=== PATIENT | male | born 1975 | race Two or more races ===

== ENCOUNTER 2017-10-10 11:56 | Inpatient (IN) | payer OTHER ==
[2017-10-10 12:22] VITALS: BMI 23.3
--- NOTE | 2017-10-10 16:23 | HP ---
COWS - Scale Resting Pulse: 1= IN 81-100 Sweatin=Flushed/Facial Moisture Restless Observation: 1= Difficult to Sit Still Pupil Size: 1= Pupils >than Normal Bone or Joint Aches: 2= Severe Diffuse Aches Runny Nose/ Eye Tearin= Runny Nose/Eyes GI Upset > 30mins: 1= Stomach Cramp Tremor Observation: 1= Tremor [place], Not Seen Yawning Observation: 1= 1-2x During Session Anxiety or Irritability: 2=Irritable/Anxious Goose Flesh Skin: 0=Smooth Skin COWS Score: 14 Admission ROS S - [facility] Chief Complaint: WITHDRAWAL SYMPTOMS Allergies/Adverse Reactions: Allergies Allergy/AdvReac Type Severity Reaction Status Date / Time No Known Allergies Allergy Verified 10/10/17 13:03 History of Present Illness: 41 Y.O. MAN WITH HISTORY OF OPIOID, COCAINE AND MARIJUANA DEPENDENCE IS HERE SEEKING DETOX. HE PREVIOUSLY COMPLETED DETOX AT ANOTHER FACILITY IN 2014. HE REPORTS HIS LONGEST PERIOD CLEAN HAS BEEN 1 YEAR AND STATES HE RELAPSED IN MAR, 2017. Exam Limitations: No Limitations - Ebola screening Have you traveled outside of the country in the last 21 days: No (N) Have you had contact with anyone from an Ebola affected area: No Have you been sick,other than usual withdrawal symptoms: No Do you have a fever: No - Review of Systems Constitutional: Chills, Loss of Appetite, Night Sweats, Unintentional Wgt. Loss EENT: reports: Tearing, Nose Congestion Respiratory: reports: Cough, Shortness of Breath Cardiac: reports: Chest Pain, Palpitations GI: reports: Nausea, Poor Appetite : reports: No Symptoms Reported Musculoskeletal: reports: Back Pain Integumentary: reports: No Symptoms Reported Neuro: reports: Headache Endocrine: reports: No Symptoms Reported Hematology: reports: No Symptoms Reported Psychiatric: reports: Mood/Affect Appropiate, Orientated x3, Depressed Other Systems: Reviewed and Negative Patient History - Patient Medical History Hx Anemia: No Hx Asthma: No Hx Chronic Obstructive Pulmonary Disease (COPD): Yes (Emphysema-dx 2011) Hx Cancer: No Hx Cardiac Disorders: No Hx Congestive Heart Failure: No Hx Hypertension: No Hx Hypercholesterolemia: No Hx Pacemaker: No HX Cerebrovascular Accident: No Hx Seizures: No Hx Dementia: No Hx Diabetes: No Hx Gastrointestinal Disorders: No Hx Liver Disease: Yes (HCV (untreated)) Hx Genitourinary Disorders: No Hx Sexually Transmitted Disorders: No Hx Renal Disease (ESRD): No Hx Thyroid Disease: No Hx Human Immunodeficiency Virus (HIV): No Hx Hepatitis C: Yes (Untreated ) Hx Depression: Yes Hx Suicide Attempt: No Hx Bipolar Disorder: No Hx Schizophrenia: No - Patient Surgical History Past Surgical History: Yes Other Surgical History: Left hand sx Anesthesia Reaction: No - PPD History Previous Implant?: Yes Documented Results: Negative w/o proof Implanted On Prior R Admission?: No PPD to be Administered?: Yes - Reproductive History Patient is a Female of Child Bearing Age (11 -55 yrs old): No - Smoking Cessation Smoking history: Current every day smoker Aproximately how many cigarettes per day: 40 Hx Chewing Tobacco Use: No Initiated information on smoking cessation: Yes 'Breaking Loose' booklet given: 10/10/17 - Substance & Tx. History Hx Alcohol Use: No Hx Substance Use: Yes Substance Use Type: Cocaine, Heroin, Marijuana Hx Substance Use Treatment: Yes (Detox: 2015 @ [facility] ) - Substances Abused Heroin Route: Injection Frequency: Daily Amount used: 7-8 bags Age of first use: 16 Date of Last Use: 10/09/17 Cocaine Route: Injection Frequency: Daily Amount used: $40 Age of first use: 9 Date of Last Use: 10/09/17 Marijuana/Hashish Route: Smoking Frequency: Daily Amount used: $40 Age of first use: 7 Date of Last Use: 10/09/17 Family Disease History - Family Disease History Family Disease History: Diabetes: Mother ( ), Heart Disease: Mother Admission Physical Exam [facility] - Vital Signs Vital Signs: Vital Signs - 24 hr 10/10/17 12:19 Temperature 97.9 F Pulse Rate 83 Respiratory 18 Rate Blood Pressure 150/87 - Physical General Appearance: Yes: Sweating, Anxious HEENTM: Yes: Hearing grossly Normal, Normocephalic, Normal Voice Respiratory: Yes: Chest Non-Tender, Lungs Clear, Normal Breath Sounds, No Accessory Muscle Use Neck: Yes: No masses,lesions,Nodules, Trachea in good position Breast: Yes: Breast Exam Deferred Cardiology: Yes: Regular Rhythm, Regular Rate Abdominal: Yes: Normal Bowel Sounds, Non Tender, Flat Genitourinary: Yes: Other (No complaints reported) Musculoskeletal: Yes: Back pain Extremities: Yes: Normal Capillary Refill, Normal Inspection, Normal Range of Motion, Non-Tender 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: 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: 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 - Detox or Rehab [facility] Level of Care: Medically Managed Detox Regimen/Protocol: Methadone [facility] Breath Alcohol Content Breath Alcohol Content: 0 Urine Drug Screen - Results Drug Screen Negative: No Urine Drug Screen Results: THC-Marijuana, DHAVAL-Cocaine, OPI-Opiates
[2017-10-10] MEDS ORDERED: guaiFENesin/D-METHORPHAN HB 10 ML UNIT-DOSE CUPS PO PRN (16:33)
[2017-10-10] MEDS ORDERED: MAGNESIUM HYDROX 2400MG/30ML ORAL SUSPENSION 30 ML CUP PO PRN (16:33)
[2017-10-10] MEDS ORDERED: IBUPROFEN 400 MG TABLET (FP) PO PRN (16:33)
[2017-10-10] MEDS ORDERED: ACETAMINOPHEN 325 MG TABLET (FP) PO PRN (16:33)
[2017-10-10] MEDS ORDERED: P-EPHED 60MG/TRIPROLIDI 2.5MG TABLET PO PRN (16:33)
[2017-10-10] MEDS ORDERED: hydrOXYzine PAMOATE 50 MG CAPSULE (FP) PO PRN (16:33)
[2017-10-10] MEDS ORDERED: LOPERAMIDE HCL 2 MG CAPSULE PO PRN (16:33)
[2017-10-10] MEDS ORDERED: MAG HYDROX/AL HYDROX/SIMETH 30 ML UNIT-DOSE CUP PO PRN (16:33)
[2017-10-10] MEDS ORDERED: MAGNESIUM CITRATE 300 ML BOTTLE PO PRN (16:33)
[2017-10-10] MEDS ORDERED: MENTHOL/PHENOL 1 EACH UD MM PRN (16:33)
[2017-10-10] MEDS ORDERED: NICOTINE POLACRILEX 4 MG GUM BC PRN (16:33)
[2017-10-10] MEDS ORDERED: ALBUTEROL SO4 2.5/IPRATROPIUM 0.5 INH SOL 3 ML VIAL.NEB. NEB PRN (16:35)
[2017-10-10] MEDS ORDERED: METHADONE HCL 10 MG TABLET (FOR DETOX USE ONLY) PO ONE ×2 (17:00→23:00)
[2017-10-10] MEDS: diazePAM 5 MG TABLET PO PRN ×2 (17:20→22:25)
[2017-10-10 20:57] LABS: URINE APPEARANCE SLCLOUDY; URINE BILIRUBIN NEGATIVE (NEGATIVE); URINE BLOOD NEGATIVE (NEGATIVE); URINE COLOR YELLOW; URINE GLUCOSE (UA) NEGATIVE (NEGATIVE); URINE KETONE NEGATIVE (NEGATIVE); URINE NITRITE NEGATIVE (NEGATIVE); URINE PROTEIN NEGATIVE (NEGATIVE); URINE UROBILINOGEN NEGATIVE mg/dL (0.2-1.0)
[2017-10-10] MEDS ORDERED: ZOLPIDEM TARTRATE 10 MG TABLET (PARK CARE ONLY) PO ONE (22:00)
[2017-10-10] MEDS: THIAMINE HCL 100 MG TABLET (FP) PO SCH (22:25)
[2017-10-11 00:40] LABS: HIV 1 & 2 AB NEGATIVE; HIV 1 AGp24 NEGATIVE
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
[2017-10-11] MEDS ORDERED: METHADONE HCL 10 MG TABLET (FOR DETOX USE ONLY) PO ONE (10:00)
[2017-10-11] MEDS: NICOTINE 21 MG/24 HOURS TOPICAL PATCH TD SCH (10:21)
[2017-10-11] MEDS: PRENATAL VITAMINS W/ FOLIC ACID TABLET (FP) PO SCH (10:22)
[2017-10-11] MEDS: diazePAM 5 MG TABLET PO PRN ×2 (10:24→22:15)
[2017-10-11 10:46] LABS: RDW 13.8 % (11.9-15.9); WHITE BLOOD COUNT 6.6 K/mm3 (4.0-10.0)
[2017-10-11 10:48] LABS: MCH 31.3 pg (25.7-33.7); MCHC 32.9 g/dl (32.0-35.9); MEAN CELL VOLUME 95.1 fl (80-96); PLATELET COUNT 220 K/MM3 (134-434)
[2017-10-11 10:49] LABS: ALBUMIN 3.8 g/dl (3.4-5.0); ANION GAP 9 (8-16); BILIRUBIN,TOTAL 0.4 mg/dL (0.2-1.0); CALCIUM 9.4 mg/dL (8.5-10.1); CO2 29 mmol/L (21-32); GLUCOSE,RANDOM 77 mg/dL (74-106); SGOT/AST 38 U/L (15-37); SGPT/ALT 66 U/L (12-78); TOT PROT 7.5 g/dl (6.4-8.2)
[2017-10-11 10:51] LABS: ALK PHOS 103 U/L (45-117)
--- NOTE | 2017-10-11 15:07 | PN ---
BHS COWS - Scale Resting Pulse: 0= ID 80 or Below Sweatin= Chills/Flushing Restless Observation: 1= Difficult to Sit Still Pupil Size: 0= Normal to Room Light Bone or Joint Aches: 2= Severe Diffuse Aches Runny Nose/ Eye Tearin= Runny Nose/Eyes GI Upset > 30mins: 0= None Tremor Observation of Outstretched Hands: 2= Slight Tremor Visible Yawning Observation: 2= >3x During Session Anxiety or Irritability: 2=Irritable/Anxious Goose Flesh Skin: 0=Smooth Skin COWS Score: 12 BHS Progress Note (SOAP) Subjective: Sweating, Fatigue, Body Aches, Tremors. Objective: PT. A & O X 2 (UNCERTAIN ABOUT DAY / DATE). PT. OBSERVED AMBULATING ON UNIT. NO ACUTE DISTRESS. 10/11/17 15:05 Vital Signs Temperature 98.3 F 10/11/17 14:38 Pulse Rate 74 10/11/17 14:38 Respiratory Rate 18 10/11/17 14:38 Blood Pressure 129/85 10/11/17 14:38 O2 Sat by Pulse Oximetry (%) Laboratory Tests 10/10/17 10/10/17 10/11/17 14:00 19:00 06:00 WBC 6.6 RBC 4.58 Hgb 14.3 Hct 43.5 MCV 95.1 MCH 31.3 MCHC 32.9 RDW 13.8 Plt Count 220 MPV 10.0 Sodium Potassium Chloride Carbon Dioxide Anion Gap BUN Creatinine Creat Clearance w eGFR Random Glucose Calcium Total Bilirubin AST ALT Alkaline Phosphatase Total Protein Albumin Urine Color Yellow Urine Appearance Slcloudy Urine pH 6.0 Ur Specific [place] 1.023 Urine Protein Negative Urine Glucose (UA) Negative Urine Ketones Negative Urine Blood Negative Urine Nitrite Negative Urine Bilirubin Negative Urine Urobilinogen Negative RPR Titer HIV 1&2 Antibody Screen Negative HIV P24 Antigen Negative 10/11/17 10/11/17 06:00 06:00 WBC RBC Hgb Hct MCV MCH MCHC RDW Plt Count MPV Sodium 139 Potassium 4.5 Chloride 101 Carbon Dioxide 29 Anion Gap 9 BUN 15 Creatinine 1.0 Creat Clearance w eGFR > 60 Random Glucose 77 Calcium 9.4 Total Bilirubin 0.4 AST 38 H ALT 66 Alkaline Phosphatase 103 Total Protein 7.5 Albumin 3.8 Urine Color Urine Appearance Urine pH Ur Specific [place] Urine Protein Urine Glucose (UA) Urine Ketones Urine Blood Urine Nitrite Urine Bilirubin Urine Urobilinogen RPR Titer Nonreactive HIV 1&2 Antibody Screen HIV P24 Antigen LABS NOTED. HCV AB RESULT PENDING. 10/11/17 15:07 Assessment: 10/11/17 15:06 WITHDRAWAL SYMPTOMS. Plan: CONTINUE DETOX. INCREASE DAILY PO FLUID INTAKE.
[2017-10-11 16:39] LABS: URINE LEUK ESTERASE Negative (NEGATIVE)
[2017-10-11] MEDS: THIAMINE HCL 100 MG TABLET (FP) PO SCH (22:13)
[2017-10-11] MEDS: ZOLPIDEM TARTRATE 10 MG TABLET (PARK CARE ONLY) PO PRN (22:15)
[2017-10-12] MEDS ORDERED: METHADONE HCL 5 MG TABLET (FOR DETOX USE ONLY) PO ONE (10:00)
[2017-10-12] MEDS: NICOTINE 21 MG/24 HOURS TOPICAL PATCH TD SCH (10:26)
[2017-10-12] MEDS: PRENATAL VITAMINS W/ FOLIC ACID TABLET (FP) PO SCH (10:26)
[2017-10-12] MEDS: diazePAM 5 MG TABLET PO PRN ×2 (10:29→19:46)
--- NOTE | 2017-10-12 16:21 | PN ---
BHS COWS - Scale Resting Pulse: 1= [place] 81-100 Sweatin=Flushed/Facial Moisture Restless Observation: 3= Extraneous Movement Pupil Size: 0= Normal to Room Light Bone or Joint Aches: 2= Severe Diffuse Aches Runny Nose/ Eye Tearin= Runny Nose/Eyes GI Upset > 30mins: 2= Nausea/Diarrhea Tremor Observation of Outstretched Hands: 2= Slight Tremor Visible Yawning Observation: 0= None Anxiety or Irritability: 2=Irritable/Anxious Goose Flesh Skin: 0=Smooth Skin COWS Score: 16 BHS Progress Note (SOAP) Subjective: Tremor, sweating, chills, interrupted sleep Objective: 10/12/17 16:20 Last Vital Signs Temp Pulse Resp BP Pulse Ox 97.3 F L 82 18 132/88 10/12/17 14:48 10/12/17 14:48 10/12/17 14:48 10/12/17 14:48 Laboratory Tests 10/10/17 10/10/17 10/11/17 14:00 19:00 06:00 WBC RBC Hgb Hct MCV MCH MCHC RDW Plt Count MPV Sodium Potassium Chloride Carbon Dioxide Anion Gap BUN Creatinine Creat Clearance w eGFR Random Glucose Calcium Total Bilirubin AST ALT Alkaline Phosphatase Total Protein Albumin Urine Color Yellow Urine Appearance Slcloudy Urine pH 6.0 Ur Specific [place] 1.023 Urine Protein Negative Urine Glucose (UA) Negative Urine Ketones Negative Urine Blood Negative Urine Nitrite Negative Urine Bilirubin Negative Urine Urobilinogen Negative Ur Leukocyte Esterase Negative RPR Titer Hepatitis C Antibody >11.0 H HIV 1&2 Antibody Screen Negative HIV P24 Antigen Negative 10/11/17 10/11/17 10/11/17 06:00 06:00 06:00 WBC 6.6 RBC 4.58 Hgb 14.3 Hct 43.5 MCV 95.1 MCH 31.3 MCHC 32.9 RDW 13.8 Plt Count 220 MPV 10.0 Sodium 139 Potassium 4.5 Chloride 101 Carbon Dioxide 29 Anion Gap 9 BUN 15 Creatinine 1.0 Creat Clearance w eGFR > 60 Random Glucose 77 Calcium 9.4 Total Bilirubin 0.4 AST 38 H ALT 66 Alkaline Phosphatase 103 Total Protein 7.5 Albumin 3.8 Urine Color Urine Appearance Urine pH Ur Specific [place] Urine Protein Urine Glucose (UA) Urine Ketones Urine Blood Urine Nitrite Urine Bilirubin Urine Urobilinogen Ur Leukocyte Esterase RPR Titer Nonreactive Hepatitis C Antibody HIV 1&2 Antibody Screen HIV P24 Antigen Labs noted Assessment: 10/12/17 16:21 Withdrawal symptoms Plan: Continue detox Encouraged to drink lots of water
[2017-10-12] MEDS: THIAMINE HCL 100 MG TABLET (FP) PO SCH (22:10)
[2017-10-12] MEDS: ZOLPIDEM TARTRATE 10 MG TABLET (PARK CARE ONLY) PO PRN (22:10)
--- NOTE | 2017-10-13 09:42 | EKG ---
Test Reason : Blood Pressure : / mmHG Vent. Rate : 080 BPM Atrial Rate : 080 BPM P-R Int : 166 ms QRS Dur : 084 ms QT Int : 350 ms P-R-T Axes : 054 065 040 degrees QTc Int : 403 ms NORMAL SINUS RHYTHM NORMAL ECG NO PREVIOUS ECGS AVAILABLE Confirmed by JACINDA MCLEAN, KATHY ([id number]) on 10/13/2017 9:41:55 AM Referred By: Confirmed By:KATHY MONACO MD
[2017-10-13] MEDS ORDERED: METHADONE HCL 5 MG TABLET (FOR DETOX USE ONLY) PO ONE (10:00)
[2017-10-13] MEDS: PRENATAL VITAMINS W/ FOLIC ACID TABLET (FP) PO SCH (10:07)
[2017-10-13] MEDS: diazePAM 5 MG TABLET PO PRN ×2 (10:07→16:26)
[2017-10-13] MEDS: NICOTINE 21 MG/24 HOURS TOPICAL PATCH TD SCH (10:07)
--- NOTE | 2017-10-13 10:22 | PN ---
BHS Progress Note (SOAP) Subjective: ANXIETY,TREMORS,SWEATS/CHILLS. Objective: 10/13/17 10:19 Vital Signs Temperature 96 F L 10/13/17 09:21 Pulse Rate 75 10/13/17 09:21 Respiratory Rate 18 10/13/17 09:21 Blood Pressure 142/89 10/13/17 09:21 O2 Sat by Pulse Oximetry (%) Laboratory Last Values WBC 6.6 K/mm3 (4.0-10.0) 10/11/17 06:00 RBC 4.58 M/mm3 (4.00-5.60) 10/11/17 06:00 Hgb 14.3 GM/dL (11.7-16.9) 10/11/17 06:00 Hct 43.5 % (35.4-49) 10/11/17 06:00 MCV 95.1 fl (80-96) 10/11/17 06:00 MCH 31.3 pg (25.7-33.7) 10/11/17 06:00 MCHC 32.9 g/dl (32.0-35.9) 10/11/17 06:00 RDW 13.8 % (11.9-15.9) 10/11/17 06:00 Plt Count 220 K/MM3 (134-434) 10/11/17 06:00 MPV 10.0 fl (7.5-11.1) 10/11/17 06:00 Sodium 139 mmol/L (136-145) 10/11/17 06:00 Potassium 4.5 mmol/L (3.5-5.1) 10/11/17 06:00 Chloride 101 mmol/L (98-107) 10/11/17 06:00 Carbon Dioxide 29 mmol/L (21-32) 10/11/17 06:00 Anion Gap 9 (8-16) 10/11/17 06:00 BUN 15 mg/dL (7-18) 10/11/17 06:00 Creatinine 1.0 mg/dL (0.7-1.3) 10/11/17 06:00 Creat Clearance w eGFR > 60 (>60) 10/11/17 06:00 Random Glucose 77 mg/dL (74-106) 10/11/17 06:00 Calcium 9.4 mg/dL (8.5-10.1) 10/11/17 06:00 Total Bilirubin 0.4 mg/dL (0.2-1.0) 10/11/17 06:00 AST 38 U/L (15-37) H 10/11/17 06:00 ALT 66 U/L (12-78) 10/11/17 06:00 Alkaline Phosphatase 103 U/L (45-117) 10/11/17 06:00 Total Protein 7.5 g/dl (6.4-8.2) 10/11/17 06:00 Albumin 3.8 g/dl (3.4-5.0) 10/11/17 06:00 Urine Color Yellow 10/10/17 19:00 Urine Appearance Slcloudy 10/10/17 19:00 Urine pH 6.0 (5.0-8.0) 10/10/17 19:00 Ur Specific [place] 1.023 (1.001-1.035) 10/10/17 19:00 Urine Protein Negative (NEGATIVE) 10/10/17 19:00 Urine Glucose (UA) Negative (NEGATIVE) 10/10/17 19:00 Urine Ketones Negative (NEGATIVE) 10/10/17 19:00 Urine Blood Negative (NEGATIVE) 10/10/17 19:00 Urine Nitrite Negative (NEGATIVE) 10/10/17 19:00 Urine Bilirubin Negative (NEGATIVE) 10/10/17 19:00 Urine Urobilinogen Negative mg/dL (0.2-1.0) 10/10/17 19:00 Ur Leukocyte Esterase Negative (NEGATIVE) 10/10/17 19:00 RPR Titer Nonreactive (NONREACTIVE) 10/11/17 06:00 Hepatitis C Antibody >11.0 s/co ratio (0.0-0.9) H 10/11/17 06:00 HIV 1&2 Antibody Screen Negative 10/10/17 14:00 HIV P24 Antigen Negative 10/10/17 14:00 Assessment: 10/13/17 10:20 WITHDRAWAL SX Plan: CONTINUE DETOX
[2017-10-13] MEDS: THIAMINE HCL 100 MG TABLET (FP) PO SCH (22:17)
[2017-10-14] MEDS ORDERED: METHADONE HCL 10 MG TABLET (FOR DETOX USE ONLY) PO ONE (10:00)
[2017-10-14] MEDS: PRENATAL VITAMINS W/ FOLIC ACID TABLET (FP) PO SCH (10:03)
[2017-10-14] MEDS: NICOTINE 21 MG/24 HOURS TOPICAL PATCH TD SCH (10:03)
--- NOTE | 2017-10-14 10:41 | PN ---
S Progress Note (SOAP) Subjective: ANXIETY,SWEATS,DECREASED IRRITABILITY AND FATIGUE. Objective: 10/14/17 10:41 Vital Signs Temperature 97.5 F L 10/14/17 10:28 Pulse Rate 81 10/14/17 10:28 Respiratory Rate 18 10/14/17 10:28 Blood Pressure 135/90 10/14/17 10:28 O2 Sat by Pulse Oximetry (%) Laboratory Last Values WBC 6.6 K/mm3 (4.0-10.0) 10/11/17 06:00 RBC 4.58 M/mm3 (4.00-5.60) 10/11/17 06:00 Hgb 14.3 GM/dL (11.7-16.9) 10/11/17 06:00 Hct 43.5 % (35.4-49) 10/11/17 06:00 MCV 95.1 fl (80-96) 10/11/17 06:00 MCH 31.3 pg (25.7-33.7) 10/11/17 06:00 MCHC 32.9 g/dl (32.0-35.9) 10/11/17 06:00 RDW 13.8 % (11.9-15.9) 10/11/17 06:00 Plt Count 220 K/MM3 (134-434) 10/11/17 06:00 MPV 10.0 fl (7.5-11.1) 10/11/17 06:00 Sodium 139 mmol/L (136-145) 10/11/17 06:00 Potassium 4.5 mmol/L (3.5-5.1) 10/11/17 06:00 Chloride 101 mmol/L (98-107) 10/11/17 06:00 Carbon Dioxide 29 mmol/L (21-32) 10/11/17 06:00 Anion Gap 9 (8-16) 10/11/17 06:00 BUN 15 mg/dL (7-18) 10/11/17 06:00 Creatinine 1.0 mg/dL (0.7-1.3) 10/11/17 06:00 Creat Clearance w eGFR > 60 (>60) 10/11/17 06:00 Random Glucose 77 mg/dL (74-106) 10/11/17 06:00 Calcium 9.4 mg/dL (8.5-10.1) 10/11/17 06:00 Total Bilirubin 0.4 mg/dL (0.2-1.0) 10/11/17 06:00 AST 38 U/L (15-37) H 10/11/17 06:00 ALT 66 U/L (12-78) 10/11/17 06:00 Alkaline Phosphatase 103 U/L (45-117) 10/11/17 06:00 Total Protein 7.5 g/dl (6.4-8.2) 10/11/17 06:00 Albumin 3.8 g/dl (3.4-5.0) 10/11/17 06:00 Urine Color Yellow 10/10/17 19:00 Urine Appearance Slcloudy 10/10/17 19:00 Urine pH 6.0 (5.0-8.0) 10/10/17 19:00 Ur Specific [place] 1.023 (1.001-1.035) 10/10/17 19:00 Urine Protein Negative (NEGATIVE) 10/10/17 19:00 Urine Glucose (UA) Negative (NEGATIVE) 10/10/17 19:00 Urine Ketones Negative (NEGATIVE) 10/10/17 19:00 Urine Blood Negative (NEGATIVE) 10/10/17 19:00 Urine Nitrite Negative (NEGATIVE) 10/10/17 19:00 Urine Bilirubin Negative (NEGATIVE) 10/10/17 19:00 Urine Urobilinogen Negative mg/dL (0.2-1.0) 10/10/17 19:00 Ur Leukocyte Esterase Negative (NEGATIVE) 10/10/17 19:00 RPR Titer Nonreactive (NONREACTIVE) 10/11/17 06:00 Hepatitis C Antibody >11.0 s/co ratio (0.0-0.9) H 10/11/17 06:00 HIV 1&2 Antibody Screen Negative 10/10/17 14:00 HIV P24 Antigen Negative 10/10/17 14:00 Assessment: 10/14/17 10:41 WITHDRAWAL SX Plan: CONTINUE DETOX
[2017-10-14 18:06] VITALS: PULSE 99
--- NOTE | 2017-10-14 20:33 | DS ---
[facility] Detox Discharge Summary Admission Date: 10/10/17 Discharge Date: 10/14/17 - History Present History: Cannabis Dependence, Cocaine Dependence, Opioid Dependence Additional Comments: received nurse call that the patient had been escorted out the facility I have not seen nor evaluate the patient recommend patient to be seen by the medical provider prior to out of the facility Pertinent Past History: hepatitis c emphysema - Physical Exam Results Vital Signs: Vital Signs Temperature 97.5 F L 10/14/17 18:05 Pulse Rate 99 H 10/14/17 18:05 Respiratory Rate 18 10/14/17 18:05 Blood Pressure 125/78 10/14/17 18:05 O2 Sat by Pulse Oximetry (%) Pertinent Admission Physical Exam Findings: withdrawal sx Laboratory Last Values WBC 6.6 K/mm3 (4.0-10.0) 10/11/17 06:00 RBC 4.58 M/mm3 (4.00-5.60) 10/11/17 06:00 Hgb 14.3 GM/dL (11.7-16.9) 10/11/17 06:00 Hct 43.5 % (35.4-49) 10/11/17 06:00 MCV 95.1 fl (80-96) 10/11/17 06:00 MCH 31.3 pg (25.7-33.7) 10/11/17 06:00 MCHC 32.9 g/dl (32.0-35.9) 10/11/17 06:00 RDW 13.8 % (11.9-15.9) 10/11/17 06:00 Plt Count 220 K/MM3 (134-434) 10/11/17 06:00 MPV 10.0 fl (7.5-11.1) 10/11/17 06:00 Sodium 139 mmol/L (136-145) 10/11/17 06:00 Potassium 4.5 mmol/L (3.5-5.1) 10/11/17 06:00 Chloride 101 mmol/L (98-107) 10/11/17 06:00 Carbon Dioxide 29 mmol/L (21-32) 10/11/17 06:00 Anion Gap 9 (8-16) 10/11/17 06:00 BUN 15 mg/dL (7-18) 10/11/17 06:00 Creatinine 1.0 mg/dL (0.7-1.3) 10/11/17 06:00 Creat Clearance w eGFR > 60 (>60) 10/11/17 06:00 Random Glucose 77 mg/dL (74-106) 10/11/17 06:00 Calcium 9.4 mg/dL (8.5-10.1) 10/11/17 06:00 Total Bilirubin 0.4 mg/dL (0.2-1.0) 10/11/17 06:00 AST 38 U/L (15-37) H 10/11/17 06:00 ALT 66 U/L (12-78) 10/11/17 06:00 Alkaline Phosphatase 103 U/L (45-117) 10/11/17 06:00 Total Protein 7.5 g/dl (6.4-8.2) 10/11/17 06:00 Albumin 3.8 g/dl (3.4-5.0) 10/11/17 06:00 Urine Color Yellow 10/10/17 19:00 Urine Appearance Slcloudy 10/10/17 19:00 Urine pH 6.0 (5.0-8.0) 10/10/17 19:00 Ur Specific [place] 1.023 (1.001-1.035) 10/10/17 19:00 Urine Protein Negative (NEGATIVE) 10/10/17 19:00 Urine Glucose (UA) Negative (NEGATIVE) 10/10/17 19:00 Urine Ketones Negative (NEGATIVE) 10/10/17 19:00 Urine Blood Negative (NEGATIVE) 10/10/17 19:00 Urine Nitrite Negative (NEGATIVE) 10/10/17 19:00 Urine Bilirubin Negative (NEGATIVE) 10/10/17 19:00 Urine Urobilinogen Negative mg/dL (0.2-1.0) 10/10/17 19:00 Ur Leukocyte Esterase Negative (NEGATIVE) 10/10/17 19:00 RPR Titer Nonreactive (NONREACTIVE) 10/11/17 06:00 Hepatitis C Antibody >11.0 s/co ratio (0.0-0.9) H 10/11/17 06:00 HIV 1&2 Antibody Screen Negative 10/10/17 14:00 HIV P24 Antigen Negative 10/10/17 14:00 lab noted - Treatment Hospital Course: Detox Protocol Followed, Responded well - Medication Discharge Medications: Ambulatory Orders NK [No Known Home Medication] 10/10/17 - Diagnosis (1) Cannabis dependence, uncomplicated Current Visit: Yes Status: Chronic (2) Cocaine dependence, uncomplicated Current Visit: Yes Status: Chronic (3) Nicotine dependence Current Visit: Yes Status: Acute Qualifiers: Nicotine product type: cigarettes Substance use status: in withdrawal Qualified Code(s): F17.213 - Nicotine dependence, cigarettes, with withdrawal (4) Opioid dependence with withdrawal Current Visit: Yes Status: Acute (5) Emphysema Current Visit: Yes Status: Chronic Qualifiers: Emphysema type: unilateral Qualified Code(s): J43.0 - Unilateral pulmonary emphysema [MacLeod's syndrome] (6) Hepatitis C Current Visit: Yes Status: Chronic Qualifiers: Viral hepatitis chronicity: unspecified - AMA Did Patient Leave Against Medical Advice: No
[2017-10-14 21:59] VITALS: BP 128/86; TEMP 98.3
[2017-10-15] MEDS ORDERED: METHADONE HCL 5 MG TABLET (FOR DETOX USE ONLY) PO ONE (06:00)
[2017-10-15 14:18] LABS: HCV LOG 10 5.242 (.)
== END 2017-10-14 18:00 | disposition home or self-care (01) | DRG 773 ==
LOC: YASAS 11:56 → Y3N 14:31
PROVIDERS: ADMIT Internal Medicine; ATTEND Internal Medicine
PROC: HZ2ZZZZ Detoxification Services for Substance Abuse Treatment (ICD-10-PCS; principal; 2017-10-10)
DX: F11.23 Opioid dependence with withdrawal (principal); F14.20 Cocaine dependence, uncomplicated; F12.20 Cannabis dependence, uncomplicated; F17.213 Nicotine dependence, cigarettes, with withdrawal; F19.282 Other psychoactive substance dependence with psychoactive substance-induced sleep disorder; F19.24 Other psychoactive substance dependence with psychoactive substance-induced mood disorder; F32.9 Major depressive disorder, single episode, unspecified; B18.2 Chronic viral hepatitis C
CPT/HCPCS: 36415; 80053; 81003; 85027; 86593; 86803; 87389; 87522; 93005; 93010

== ENCOUNTER 2023-05-21 22:35 | Inpatient (IN) | payer OTHER ==
[2023-05-21 23:07] VITALS: BMI 21.4
[2023-05-21] MEDS ORDERED: NICOTINE 10 MG CARTRIDGE (INHALER) IH PRN (23:28)
[2023-05-21] MEDS ORDERED: BENZOCAINE/MENTHOL (CHLORASEPTIC ) LOZENGE MM PRN (23:28)
[2023-05-21] MEDS ORDERED: AMMONIUM LACTATE 12% LOTION 225 GM BOTTLE TP PRN (23:28)
[2023-05-21] MEDS ORDERED: IBUPROFEN 600 MG TABLET (FP) PO PRN (23:28)
[2023-05-21] MEDS ORDERED: hydrOXYzine PAMOATE 25 MG CAPSULE (FP) PO PRN (23:28)
[2023-05-21] MEDS ORDERED: LOPERAMIDE HCL 2 MG CAPSULE PO PRN (23:28)
[2023-05-21] MEDS ORDERED: NALOXONE HCL 0.4 MG/ML VIAL IM PRN (23:28)
[2023-05-21] MEDS ORDERED: ACETAMINOPHEN 325 MG TABLET (FP) PO PRN (23:28)
[2023-05-21] MEDS ORDERED: guaiFENesin 600 MG TABLET.ER (FP) PO PRN (23:28)
[2023-05-21] MEDS ORDERED: IBUPROFEN 400 MG TABLET (FP) PO PRN (23:28)
[2023-05-21] MEDS ORDERED: POLYETHYLENE GLYCOL (HEALTHYLAX) 3350 17 GM PACKET PO PRN (23:28)
[2023-05-21] MEDS ORDERED: P-EPHED 60MG/TRIPROLIDI 2.5MG TABLET PO PRN (23:28)
[2023-05-21] MEDS ORDERED: BENZONATATE 200 MG CAPSULE PO PRN (23:28)
[2023-05-21] MEDS ORDERED: MAGNESIUM HYDROX 2400MG/30ML ORAL SUSPENSION 30 ML CUP PO PRN (23:28)
[2023-05-21] MEDS ORDERED: COLLOIDAL OATMEAL 1 BAR EACH TP PRN (23:28)
[2023-05-21] MEDS ORDERED: NICOTINE POLACRILEX 2 MG GUM BUC PRN (23:28)
[2023-05-21] MEDS ORDERED: MAG HYDROX/AL HYDROX/SIMETH 30 ML UNIT-DOSE CUP PO PRN (23:28)
[2023-05-21] MEDS ORDERED: NALOXONE HCL (KLOXXADO) 8 MG SPRAY NS PRN (23:28)
[2023-05-22] MEDS ORDERED: TUBERCULIN PPD 5 TU/0.1ML VIAL ID ONE (01:14)
[2023-05-22] MEDS: MELATONIN 5 MG TABLETS PO SCH ×2 (01:18→21:36)
[2023-05-22] MEDS ORDERED: TUBERCULIN PPD 5 TU/0.1ML SYRINGE (IN PATIENT USE ONLY) ID ONE (01:30)
[2023-05-22 03:17] LABS: PH,URINE 5.5 (5.0-8.0); URINE APPEARANCE TURBID; URINE BILIRUBIN NEGATIVE (NEGATIVE); URINE COLOR YELLOW; URINE GLUCOSE (UA) NEGATIVE (NEGATIVE); URINE KETONE TRACE (NEGATIVE); URINE LEUK ESTERASE NEGATIVE (NEGATIVE); URINE NITRITE NEGATIVE (NEGATIVE); URINE PROTEIN NEGATIVE (NEGATIVE)
[2023-05-22] MEDS ORDERED: methaDONE HCL 10 MG TABLET PO SCH (09:15)
[2023-05-22] MEDS: PRENATAL VITAMINS W/ FOLIC ACID TABLET (FP) PO SCH (09:46)
[2023-05-22 11:56] LABS: HEMATOCRIT 36.3 % (35.4-49); HEMOGLOBIN 11.8 GM/dL (11.7-16.9); MCH 31.3 pg (25.7-33.7); MCHC 32.4 g/dl (32.0-35.9); MEAN CELL VOLUME 96.5 fl (80-96); MEAN PLT VOLUME 10.3 fl (7.5-11.1); PLATELET COUNT 175 10^3/uL (134-434); RBC 3.76 M/mm3 (4.00-5.60); RDW 13.8 % (11.9-15.9); WHITE BLOOD COUNT 3.7 K/mm3 (4.0-10.0)
[2023-05-22 12:03] LABS: POTASSIUM 4.3 mmol/L (3.5-5.1)
[2023-05-22 12:07] LABS: ALBUMIN 3.2 g/dl (3.4-5.0)
[2023-05-22 12:09] LABS: CALCIUM 9.1 mg/dL (8.5-10.1)
[2023-05-22 12:10] LABS: CREATININE 0.9 mg/dL (0.55-1.3)
[2023-05-22 12:11] LABS: BILIRUBIN,TOTAL 0.2 mg/dL (0.2-1)
[2023-05-22 12:12] LABS: TOT PROT 6.1 g/dl (6.4-8.2)
[2023-05-22] MEDS: SERTRALINE HCL 50 MG TABLET (FP) PO SCH (12:28)
[2023-05-22 12:29] LABS: SYPHILIS W/ RPR CONF NON-REACTIVE (NONREACTIVE)
[2023-05-22] MEDS: THIAMINE HCL 100 MG TABLET (FP) PO SCH (21:36)
[2023-05-22] MEDS: traZODone HCL 50 MG TABLET (FP) PO SCH (21:36)
[2023-05-23] MEDS: SERTRALINE HCL 50 MG TABLET (FP) PO SCH (09:48)
[2023-05-23] MEDS: PRENATAL VITAMINS W/ FOLIC ACID TABLET (FP) PO SCH (09:48)
[2023-05-23] MEDS: THIAMINE HCL 100 MG TABLET (FP) PO SCH (21:40)
[2023-05-23] MEDS: MELATONIN 5 MG TABLETS PO SCH (21:40)
[2023-05-23] MEDS: traZODone HCL 50 MG TABLET (FP) PO SCH (21:40)
[2023-05-24] MEDS: PRENATAL VITAMINS W/ FOLIC ACID TABLET (FP) PO SCH (10:01)
[2023-05-24] MEDS: SERTRALINE HCL 50 MG TABLET (FP) PO SCH (10:02)
[2023-05-24] MEDS: traZODone HCL 50 MG TABLET (FP) PO SCH (21:16)
[2023-05-24] MEDS: MELATONIN 5 MG TABLETS PO SCH (21:16)
[2023-05-24] MEDS: THIAMINE HCL 100 MG TABLET (FP) PO SCH (21:17)
[2023-05-25] MEDS: PRENATAL VITAMINS W/ FOLIC ACID TABLET (FP) PO SCH (09:45)
[2023-05-25] MEDS: SERTRALINE HCL 50 MG TABLET (FP) PO SCH (09:45)
[2023-05-25] MEDS: traZODone HCL 50 MG TABLET (FP) PO SCH (21:26)
[2023-05-25] MEDS: MELATONIN 5 MG TABLETS PO SCH (21:26)
[2023-05-25] MEDS: THIAMINE HCL 100 MG TABLET (FP) PO SCH (21:26)
[2023-05-26] MEDS: PRENATAL VITAMINS W/ FOLIC ACID TABLET (FP) PO SCH (09:57)
[2023-05-26] MEDS: SERTRALINE HCL 50 MG TABLET (FP) PO SCH (09:57)
[2023-05-26] MEDS: THIAMINE HCL 100 MG TABLET (FP) PO SCH (21:21)
[2023-05-26] MEDS: traZODone HCL 50 MG TABLET (FP) PO SCH (21:21)
[2023-05-26] MEDS: MELATONIN 5 MG TABLETS PO SCH (21:21)
[2023-05-27] MEDS: PRENATAL VITAMINS W/ FOLIC ACID TABLET (FP) PO SCH (10:06)
[2023-05-27] MEDS: SERTRALINE HCL 50 MG TABLET (FP) PO SCH (10:06)
[2023-05-27] MEDS: THIAMINE HCL 100 MG TABLET (FP) PO SCH (21:18)
[2023-05-27] MEDS: traZODone HCL 50 MG TABLET (FP) PO SCH (21:18)
[2023-05-27] MEDS: MELATONIN 5 MG TABLETS PO SCH (21:18)
[2023-05-28] MEDS: PRENATAL VITAMINS W/ FOLIC ACID TABLET (FP) PO SCH (09:59)
[2023-05-28] MEDS: SERTRALINE HCL 50 MG TABLET (FP) PO SCH (09:59)
[2023-05-28] MEDS: MELATONIN 5 MG TABLETS PO SCH (21:35)
[2023-05-28] MEDS: THIAMINE HCL 100 MG TABLET (FP) PO SCH (21:35)
[2023-05-28] MEDS: traZODone HCL 50 MG TABLET (FP) PO SCH (21:35)
[2023-05-29] MEDS: PRENATAL VITAMINS W/ FOLIC ACID TABLET (FP) PO SCH (09:59)
[2023-05-29] MEDS: SERTRALINE HCL 50 MG TABLET (FP) PO SCH (09:59)
[2023-05-29] MEDS: MELATONIN 5 MG TABLETS PO SCH (21:17)
[2023-05-29] MEDS: traZODone HCL 50 MG TABLET (FP) PO SCH (21:17)
[2023-05-29] MEDS: THIAMINE HCL 100 MG TABLET (FP) PO SCH (21:17)
[2023-05-30] MEDS: PRENATAL VITAMINS W/ FOLIC ACID TABLET (FP) PO SCH (10:08)
[2023-05-30] MEDS: SERTRALINE HCL 50 MG TABLET (FP) PO SCH (10:11)
[2023-05-30] MEDS: MELATONIN 5 MG TABLETS PO SCH (21:21)
[2023-05-30] MEDS: traZODone HCL 50 MG TABLET (FP) PO SCH (21:21)
[2023-05-30] MEDS: THIAMINE HCL 100 MG TABLET (FP) PO SCH (21:21)
[2023-05-31] MEDS: SERTRALINE HCL 50 MG TABLET (FP) PO SCH (10:00)
[2023-05-31] MEDS: PRENATAL VITAMINS W/ FOLIC ACID TABLET (FP) PO SCH (10:00)
[2023-05-31] MEDS: MELATONIN 5 MG TABLETS PO SCH (21:33)
[2023-05-31] MEDS: traZODone HCL 50 MG TABLET (FP) PO SCH (21:34)
[2023-05-31] MEDS: THIAMINE HCL 100 MG TABLET (FP) PO SCH (21:34)
[2023-06-01] MEDS: PRENATAL VITAMINS W/ FOLIC ACID TABLET (FP) PO SCH (09:47)
[2023-06-01] MEDS: SERTRALINE HCL 50 MG TABLET (FP) PO SCH (09:50)
[2023-06-01] MEDS: THIAMINE HCL 100 MG TABLET (FP) PO SCH (21:34)
[2023-06-01] MEDS: MELATONIN 5 MG TABLETS PO SCH (21:34)
[2023-06-01] MEDS: traZODone HCL 50 MG TABLET (FP) PO SCH (21:34)
[2023-06-02] MEDS: SERTRALINE HCL 50 MG TABLET (FP) PO SCH (09:59)
[2023-06-02] MEDS: PRENATAL VITAMINS W/ FOLIC ACID TABLET (FP) PO SCH (09:59)
[2023-06-02] MEDS: traZODone HCL 50 MG TABLET (FP) PO SCH (21:19)
[2023-06-02] MEDS: THIAMINE HCL 100 MG TABLET (FP) PO SCH (21:19)
[2023-06-02] MEDS: MELATONIN 5 MG TABLETS PO SCH (21:19)
[2023-06-03] MEDS: SERTRALINE HCL 50 MG TABLET (FP) PO SCH (09:44)
[2023-06-03] MEDS: PRENATAL VITAMINS W/ FOLIC ACID TABLET (FP) PO SCH (09:44)
[2023-06-03] MEDS: MELATONIN 5 MG TABLETS PO SCH (21:18)
[2023-06-03] MEDS: THIAMINE HCL 100 MG TABLET (FP) PO SCH (21:19)
[2023-06-03] MEDS: traZODone HCL 50 MG TABLET (FP) PO SCH (21:19)
[2023-06-04] MEDS: PRENATAL VITAMINS W/ FOLIC ACID TABLET (FP) PO SCH (09:55)
[2023-06-04] MEDS: SERTRALINE HCL 50 MG TABLET (FP) PO SCH (09:55)
[2023-06-04] MEDS: MELATONIN 5 MG TABLETS PO SCH (21:17)
[2023-06-04] MEDS: traZODone HCL 50 MG TABLET (FP) PO SCH (21:17)
[2023-06-04] MEDS: THIAMINE HCL 100 MG TABLET (FP) PO SCH (21:17)
[2023-06-05 06:57] VITALS: BP 128/74; PULSE 68; RESP 16; TEMP 96.4
[2023-06-05] MEDS: PRENATAL VITAMINS W/ FOLIC ACID TABLET (FP) PO SCH (09:48)
[2023-06-05] MEDS: SERTRALINE HCL 50 MG TABLET (FP) PO SCH (09:49)
== END 2023-06-05 10:13 | disposition home or self-care (01) | DRG 772 ==
LOC: YASAS 22:35 → Y5N 05-22 00:57
PROVIDERS: ADMIT Allergy & Immunology; ATTEND Psychiatry & Neurology Pain Medicine
PROC: HZ42ZZZ Group Counseling for Substance Abuse Treatment, Cognitive-Behavioral (ICD-10-PCS; principal; 2023-05-22)
DX: F14.20 Cocaine dependence, uncomplicated (principal); F11.20 Opioid dependence, uncomplicated; F17.210 Nicotine dependence, cigarettes, uncomplicated; F32.A Depression, unspecified; F43.10 Post-traumatic stress disorder, unspecified; J43.0 Unilateral pulmonary emphysema [MacLeod's syndrome]; Z62.810 Personal history of physical and sexual abuse in childhood; Z86.19 Personal history of other infectious and parasitic diseases
CPT/HCPCS: 36415; 80053; 81003; 85027; 86780; 86803; 87522; 87635; 93005; 93010